=== PATIENT | female | born 1965 | race Caucasian/White ===

== ENCOUNTER 2025-07-19 15:22 | Emergency (ER) | payer MEDICARE, MEDICAID, SELFPAY ==
--- NOTE | ~2025-07-19 | XR_ITS ---
CLINICAL HISTORY: cough Chest Radiograph Comparison: None available Findings: No cardiomegaly. Normal mediastinal contours. No pneumothorax. No opacity. No pleural effusion. No acute findings in the upper abdomen. No acute fracture. Impression: No acute findings. This document has been electronically signed by: Ping Whitfield MD on 07/19/2025 19:05:38
--- NOTE | ~2025-07-19 | CT_ITS ---
CLINICAL HISTORY: bilateral abd pain, rectal bleeding CT abdomen and pelvis with contrast Comparison: None provided Findings: Mild bibasilar atelectasis/pneumonitis. Fat deposition noted in the liver. Gallbladder is absent or obscured. 1.1 cm nodule of the right adrenal gland is indeterminate. Left adrenal glands are unremarkable accounting for artifacts. Mild-moderate moderate volume loss of the imaged pancreas. Mild splenomegaly. Nonobstructing bilateral nephrolithiasis measure up to 3 mm. No hydronephrosis. No suspicious features of the imaged small cystic lesions in the kidneys. Small retroperitoneal lymph nodes and inguinal region lymph nodes are likely reactive. No small bowel obstruction. Wall thickening of the large intestine is nonspecific. Differential considerations include colitis, including the cecum and splenic flexure. Imaged appendix is within normal limits (55 of series 3). Calcified and noncalcified plaque involving the imaged aorta and its branches. Imaged uterus is anteverted. No adnexal soft tissue mass by CT. Mild wall thickening of the urinary bladder is nonspecific. Mild free fluid in the pelvis may be reactive and/or secondary to inflammation. No drainable abscess by CT. No free intraperitoneal air. Small fat containing periumbilical hernia. Subcutaneous edema is noted. Trace fat containing left inguinal hernia. Mild osseous pelvis deformities appear old/chronic. Degenerative changes include imaged hips and imaged spine. Facet arthropathy is multifocal. Minimal imaged vertebral height losses appear old/chronic. Vacuum disc phenomenon noted at L5-S1. IMPRESSION: 1. Wall thickening of the large intestine is nonspecific. Differential considerations include findings of colitis. Mural neoplasm not excluded by CT given abnormal appearance of the wall. 2. 1.1 cm nodule of the right adrenal gland is indeterminate. Please consider attention on follow-up and/or dedicated adrenal imaging. 3. Bilateral nonobstructing nephrolithiasis. This document has been electronically signed by: Jeffy Lambert MD on 07/19/2025 19:47:09
--- NOTE | 2025-07-19 15:26 | ED_ITS ---
HPI - General Adult General Chief complaint: GI Bleed Stated complaint: SOB Rectal bleeding congestion Time Seen by Provider: 07/19/25 17:40 Source: patient Mode of arrival: ambulatory Limitations: no limitations History of Present Illness ED Provider: Dr. Martha Mora HPI narrative: Patient comes to the emergency room complaining of chest pain due to cough for about a week, complaining of lower abdominal pain especially in the left lower quadrant, diarrhea and rectal bleeding due to hemorrhoids. Patient denies any shortness of breath or syncope or near-syncope, denies palpitations. Related Data Previous Rx's ?Medication ?Instructions ?Recorded amoxicillin 875 mg-potassium 1 tab PO BID 7 days #14 t abs 07/19/25 clavulanate 125 mg tablet benzonatate 100 mg capsule 100 mg PO TID PRN cough #12 caps 07/19/25 dicyclomine 20 mg tablet 20 mg PO BID PRN abdominal p ain 07/19/25 #10 tabs hydrocortisone 2.5 % topical cream 1 appl SC BEDTIME P RN hemorrhoids 07/19/25 with perineal applicator #30 grams (Proctosol HC) Allergies Allergy/AdvReac Type Severity Reaction Status Date / Time codeine Allergy Unknown Verified 07/19/25 15:29 Review of Systems 2 Review of Systems: Constitutional : No Weight loss, No Fever, No Chills, No Night Sweats, No Fatigue, No Malaise ENT/Mouth : No Hearing loss, No Ear Pain, No Nasal Congestion, No Sinus Pain, No Hoarseness, No sore throat, No Rhinorrhea, No Swallowing Difficulty Eyes: No Eye Pain, No Swelling, No Redness, No Foreign Body, No Discharge, No Vision Changes Cardiovascular : No Chest Pain, No SOB, No Dyspnea on Exertion, No Orthopnea, No Edema, No Palpitations Respiratory : Complaining of productive cough, No Wheezing, No Smoke Exposure, No Dyspnea Gastrointestinal : No Nausea, No Vomiting, No Diarrhea, No Constipation, No abdominal Pain complaining of rectal bleeding due to hemorrhoids,, No Hematochezia, No Melena Genitourinary : no irregular bleeding, No Dysuria, No Urinary Frequency, No Hematuria, No Urinary Incontinence, No Urgency, No Flank Pain, No Urinary Flow Changes, No Hesitancy Musculoskeletal : No joint pain, No Myalgias, No Joint Swelling Skin : No Skin Lesions, No rash Neuro : No Weakness, No Numbness, No Paresthesias, No Loss of Consciousness, No Dizziness, No Headache Psych : No Anxiety/Panic, No Depression, No SI/HI/AH/VH, No Social Issues, Heme/Lymph: No Bruising, No Bleeding,No Lymphadenopathy Endocrine : No Polyuria, No Polydipsia, No Temperature Intolerance [facility] Past Medical History Medical History (Updated 07/19/25 @ 19:23 by Martha Mora MD) GERD (gastroesophageal reflux disease) Migraine Hypertension Social History Social History Advance Directives: No Advance Directives Information Provided: No Physical Exam ED Exam Exam: Appearance: Alert. Oriented X3. No acute distress. Well-appearing Eyes: Pupils equal, round and reactive to light. ENT: Pharynx normal. Neck: Normal inspection. Neck supple. No lymph nodes noted. No crepitus CVS: Normal heart rate and rhythm. Pulses normal. Normal S1 and S2 Respiratory: No respiratory distress. Breath sounds normal. No Wheezing. No rales Abdomen: Soft , tenderness to palpation in left lower quadrant, no rebound or guarding. No rigidity. No distention. Patient has external hemorrhoids. However, they are not thrombosed Skin: Skin warm and dry. Normal skin color. Normal skin turgor. Extremities: No lower extremity edema. No Lacerations. No Rash Neuro: Oriented X 3. No motor deficit. No sensory deficit. Moving all extremities. No slurred speech. CN 2 through 12 grossly intact Psych: calm, cooperative, normal affect Vital Signs: Vital Signs - 24 hr 07/19/25 15:27 07/19/25 19:13 Temperature 97.7 F 97.8 F Pulse Rate 84 79 Respiratory Rate 16 18 Blood Pressure 154/99 H 109/83 Pulse Oximetry 97 96 Oxygen Delivery Method Room Air Room Air BMI result Body Mass Index 32.7 Course Course Course Narrative: This is a rapid medical exam performed by Alyce Stout NP: Additional HPI, ROS, PE not included below will be deferred to primary provider. Patient is a 59y/o F presenting to the ED with complaint of lower abdominal pain radiating to lower back, diarrhea. Also reports hematochezia with bright red blood and clots. Reports history of same in the past. Feels weak and dizzy. Nausea without vomiting. Plan: labs, UA Medications Administered Discontinued Medications Generic Name Dose Route Start Last Admin Trade Name Judy PRN Reason Stop Dose Admin Sodium Chloride 1,000 mls @ 999 mls/hr 07/19/25 17:51 07/19/25 18:35 Ns IVCONT 07/19/25 18:51 999 mls/hr .Q1H1M ONE Administration Acetaminophen 1,000 mg in 100 mls @ 400 mls/hr 07/19/25 17:51 07/19/25 19:34 Ofirmev IV 07/19/25 18:05 Infused ONCE ONE Infusion Iohexol 100 ml 07/19/25 18:50 07/19/25 18:50 Iohexol 350 Mg/Ml 100 Ml Infus..Btl IV 07/19/25 18:51 85 ml ONCE ONE Administration Ondansetron HCl 4 mg 07/19/25 17:51 07/19/25 18:34 Ondansetron Hcl 4 Mg/2 Ml Vial IVPUSH 07/19/25 17:52 4 mg ONCE ONE Administration Medical Decision Making Medical Decision Making MDM Narrative: My interpretation of labs: No significant abnormality in patient's hematology and chemistry, INR within normal limits, normal chemistry, AST slightly elevated, rest of LFTs within normal limits, serology negative for influenza RSV COVID Chest x-ray does not show any acute abnormality Lab Data MDM Lab Attestation statement: I reviewed the patient's lab results. 07/19/25 15:43 07/19/25 15:43 Labs: Lab Results 07/19/25 Range/Units 15:43 WBC 8.5 (4.8-10.8) X10*3/uL RBC 5.55 H (4.20-5.50) X10*6/uL Hgb 14.1 (12.0-16.0) g/dl Hct 44.3 (37.0-47.0) % MCV 79.8 L (80.0-98.0) fL MCH 25.4 L (27.0-33.0) pg MCHC 31.8 (31.0-35.0) g/dl RDW 15.9 (11.0-16.0) % Plt Count 255 (160-400) X10*3/uL MPV 9.9 (9.4-12.3) fL Immature Gran % (Auto) 0.4 (0.0-0.4) % Neut % (Auto) 68.6 (45-73) % Lymph % (Auto) 23.9 (20-40) % Donley % (Auto) 5.4 (2-11) % Eos % (Auto) 1.3 (0-4) % Baso % (Auto) 0.4 (0-2) % Lymph # (Auto) 2.0 (1.2-4.9) X10*3/uL Donley # (Auto) 0.5 (0.1-1.2) X10*3/uL Eos # (Auto) 0.1 (0.0-0.4) X10*3/uL Baso # (Auto) 0.0 (0.0-0.2) X10*3/uL Abs Immat Gran (auto) 0.03 (0.00-0.03) X10*3/uL Absolute Neuts (auto) 5.9 (2.0-8.3) x10*3/uL Absolute Nucleated RBC 0.000 (0.0-0.012) X10*3/uL Nucleated RBC % (auto) 0.0 (0.0-0.2) /100WBC PT 13.4 (11.2-13.5) SEC INR 1.1 (0.9-1.1) Sodium 141 (135-145) mmol/L Potassium 3.3 (3.3-5.1) mmol/L Chloride 101 (96-108) mmol/L Carbon Dioxide 28 (22-29) mmol/L Anion Gap 15 (12-20) BUN 15 (9-16) mg/dL Creatinine 0.79 (0.5-1.4) mg/dL Estim Creat Clear Calc 90.5 Estimated GFR > 60 Random Glucose 177 H (60-115) mg/dL Calcium 10.2 (8.4-10.2) mg/dL Magnesium 2.3 (1.6-2.6) mg/dL Total Bilirubin 0.7 (0.0-1.0) mg/dL AST 53 H (5-31) U/L ALT 28 (0-31) U/L Alkaline Phosphatase 139 H (39-117) U/L Total Protein 9.0 H (6.5-8.0) g/dL Albumin 5.0 (3.5-5.0) g/dL Influenza Type A (PCR) NEGATIVE (Negative) Influenza Type B (PCR) NEGATIVE (Negative) RSV RNA Qual (PCR) NEGATIVE (Negative) SARS-CoV-2 RNA (RT-PCR) NEGATIVE (Negative) Blood Type A Positive Antibody Screen NEGATIVE Independent Interpretation I performed an independent interpretation of an: Plain X-Ray and CT Scan Radiology Impression Discussion of test interpretation with radiology: I have reviewed the radiologist's reading. Radiologist Impression: No cardiomegaly. Normal mediastinal contours. No pneumothorax. No opacity. No pleural effusion. No acute findings in the upper abdomen. No acute fracture. Impression: No acute findings. Critical Care Time Critical Care Time Critical Care Time: Yes Total Critical Care Time: 35 Attestation: I have personally provided critical care time. Time includes review of lab data, radiology results, discussion with consultants, and monitoring for potential decompensation. Intervention performed as documented. Discharge Plan Discharge Clinical Impression: Abdominal pain, Hemorrhoids, Bronchitis Patient Disposition: Home, Self-Care Instructions: Acute Bronchitis (ED), Abdominal Pain (ED), Sitz Bath (DC) Additional Instructions: Please follow-up with your primary care physician tomorrow. If you have any worsening or new symptoms, please return to the emergency room or call 911. [address] scan showed some thickening of the intestinal wall. Often times this is from inflammation or infection such as colitis however they can not completely exclude a mass or cancer of the intestine by CT scan and it is recommended that after your current symptoms improve you should call Gastroenterology to schedule a colonoscopy to evaluate this. Additionally small mass finding on your adrenal gland was identified this can be followed up by your primary doctor see the CT scan result below. IMPRESSION: 1. Wall thickening of the large intestine is nonspecific. Differential considerations include findings of colitis. Mural neoplasm not excluded by CT given abnormal appearance of the wall. 2. 1.1 cm nodule of the right adrenal gland is indeterminate. Please consider attention on follow-up and/or dedicated adrenal imaging. 3. Bilateral nonobstructing nephrolithiasis. This document has been electronically signed by: Jeffy Lambert MD on 07/19/2025 19:47:09 Prescriptions: New hydrocortisone [Proctosol HC] 2.5 % cream with perineal applicator 1 appl SC BEDTIME PRN (Reason: hemorrhoids) Qty: 30 0RF dicyclomine 20 mg tablet 20 mg PO BID PRN (Reason: abdominal pain) Qty: 10 0RF benzonatate 100 mg capsule 100 mg PO TID PRN (Reason: cough) Qty: 12 0RF amoxicillin-pot clavulanate 875-125 mg tablet 1 tab PO BID 7 Days Qty: 14 0RF Print Language: Malay
[2025-07-19 15:27] VITALS: BP 154/99; PULSE 84; RESP 16; TEMP 36.5; O2SAT 97; BMI 32.7
[2025-07-19 15:58] LABS: MANUAL DIFF FLAG NO
[2025-07-19 16:00] LABS: Hematocrit 44.3 % (37.0-47.0); Hemoglobin 14.1 g/dl (12.0-16.0); Imm Gran Abs Auto 0.03 X10*3/uL (0.00-0.03); Imm Gran Pct Auto 0.4 % (0.0-0.4); Lymphocytes Absolute Auto 2.0 X10*3/uL (1.2-4.9); Mean Corpuscular HGB Conc 31.8 g/dl (31.0-35.0); Mean Corpuscular Hemoglobin 25.4 pg (27.0-33.0); Mean Corpuscular Volume 79.8 fL (80.0-98.0); NRBC Abs Auto 0.000 X10*3/uL (0.0-0.012); NRBC Pct Auto 0.0 /100WBC (0.0-0.2); Platelet Count 255 X10*3/uL (160-400); Red Blood Count 5.55 X10*6/uL (4.20-5.50); White Blood Count 8.5 X10*3/uL (4.8-10.8)
[2025-07-19 16:10] LABS: INTERNATIONAL NORM RATIO 1.1 (0.9-1.1); Prothrombin Time 13.4 SEC (11.2-13.5)
[2025-07-19 16:15] LABS: Alanine Aminotransferase 28 U/L (0-31); Albumin Level 5.0 g/dL (3.5-5.0); Alkaline Phosphatase 139 U/L (39-117); Anion Gap 15 (12-20); Aspartate Amino Transferase 53 U/L (5-31); Blood Urea Nitrogen 15 mg/dL (9-16); Calcium 10.2 mg/dL (8.4-10.2); Carbon Dioxide 28 mmol/L (22-29); Chloride 101 mmol/L (96-108); Creatinine Clr Calc Pharmacy 90.5; Estimated Glomerular Filt Rate > 60; Magnesium 2.3 mg/dL (1.6-2.6); Potassium 3.3 mmol/L (3.3-5.1); Sodium 141 mmol/L (135-145); Total Protein 9.0 g/dL (6.5-8.0)
[2025-07-19 16:33] LABS: Resp Syncy Virus RNA Qual PCR NEGATIVE (Negative); SARS COV2 PCR INHOUSE NEGATIVE (Negative)
--- NOTE | 2025-07-19 17:37 | PC.NURSE ---
Patient moved from waiting room to ED 23. Awaiting ED provider evaluation.
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
[2025-07-19] MEDS: iohexoL 350 MG/ML 100 ML INFUS..BTL IV (18:50)
[2025-07-19 19:13] VITALS: BP 109/83; PULSE 79; RESP 18; TEMP 36.6; O2SAT 96
--- NOTE | 2025-07-19 19:15 | PC.NURSE ---
18 g IV in left AC
--- NOTE | 2025-07-19 19:35 | PC.NURSE ---
Assumed care of pt. No new orders at this time. Pt resting comfortably on stretcher, all needs met at this time. Call fraser within reach.
[2025-07-19 20:06] LABS: Appearance Urine Clear; Glucose Urine UA Negative (Negative); PH 6.0 (5.0-9.0); Specific Gravity - Urine >= 1.030 (1.005-1.025); UMIC TRIGGER UACC YES
[2025-07-19 20:17] VITALS: BP 109/83; PULSE 79; RESP 18; TEMP 36.6; O2SAT 96
[2025-07-19 20:20] LABS: UACC Culture Trigger YES
== END 2025-07-19 20:17 | disposition home or self-care (01) ==
PROVIDERS: Registered Nurse Emergency; Emergency Provider Emergency Medicine; PCP Student in an Organized Health Care Education/Training Program
DX: R10.32 Left lower quadrant pain (principal); K64.4 Residual hemorrhoidal skin tags; J40 Bronchitis, not specified as acute or chronic; R05.9 Cough, unspecified; R11.0 Nausea; I10 Essential (primary) hypertension; Z03.818 Encounter for observation for suspected exposure to other biological agents ruled out
CPT/HCPCS: 71045; 74177; 80053; 81001; 83735; 85025; 85610; 86850; 86900; 86901; 87086; 87637; 96365; 96375; 99285; J0131; J2405; Q9967

== ENCOUNTER → 2025-07-19 17:43 | Outpatient (BNV) | payer MEDICARE, MEDICAID, SELFPAY | PROVIDERS: Emergency Provider Emergency Medicine; PCP Student in an Organized Health Care Education/Training Program; Visit Provider Radiology Neuroradiology | DX: R05.9 Cough, unspecified (principal) | CPT/HCPCS: 71045 ==